=== PATIENT | female | born 1960 | race Caucasian/White ===

== ENCOUNTER 2023-02-16 08:00 | Outpatient (RCR) | payer BC | END 2023-03-18 | disposition home or self-care (01) | LOC: PT | DX: M17.11 Unilateral primary osteoarthritis, right knee (principal); Z96.651 Presence of right artificial knee joint ==

== ENCOUNTER → 2023-02-26 | Outpatient (CLI) | payer BC | LOC: RAD 13:58 | DX: M79.661 Pain in right lower leg (principal) ==

== ENCOUNTER 2023-03-20 08:00 | Outpatient (RCR) | payer SELFPAY | END 2023-04-18 | disposition home or self-care (01) | LOC: PT | DX: M17.11 Unilateral primary osteoarthritis, right knee (principal); Z96.651 Presence of right artificial knee joint ==

== ENCOUNTER 2023-04-19 08:00 | Outpatient (RCR) | payer SELFPAY | END 2023-05-17 | disposition home or self-care (01) | LOC: PT | DX: M17.11 Unilateral primary osteoarthritis, right knee (principal); Z96.651 Presence of right artificial knee joint ==